=== PATIENT | female | born 1965 | race Caucasian/White ===

== ENCOUNTER 2017-09-29 16:47 | Emergency (ER) | payer OTHER ==
[~2017-09-29] VITALS: Ht 154.9 cm; Wt 60.0 kg
[2017-09-29 17:51] LABS: BASOPHILS % (AUTO) 0.3 % (0.0-2.0); EOSINOPHILS % (AUTO) 1.9 % (1.0-6.0); HEMATOCRIT 35.1 % (36-46); HEMOGLOBIN 11.5 g/dL (12.0-16.0); LYMPHOCYTES # (AUTO) 1.7 K/uL (1.0-4.8); LYMPHOCYTES % (AUTO) 24.2 % (22.0-44.0); MEAN CORPUSCULAR HEMOGLOBIN 26.4 pg (26.0-34.0); MEAN CORPUSCULAR HGB CONC 32.9 G/dL (31.0-37.0); MEAN CORPUSCULAR VOLUME 80 fL (80-100); MONOCYTES # (AUTO) 0.4 K/uL (0.1-1.0); MONOCYTES % (AUTO) 6.2 % (2.0-9.0); NEUTROPHILS # (AUTO) 4.9 K/uL (1.8-7.7); NEUTROPHILS % (AUTO) 67.4 % (40.0-70.0); PLATELET COUNT (AUTO) 266 K/uL (150-450); RED BLOOD CELL COUNT(AUTO) 4.37 MIL/uL (4.00-5.20); RED CELL DISTRIBUTION WIDTH 14.4 % (11.5-14.5); WHITE BLOOD COUNT (AUTO) 7.2 K/uL (4.5-11.0)
[2017-09-29 17:58] LABS: ANION GAP 10 mmol/L (8-16); CALCIUM, TOTAL 8.6 mg/dL (8.8-10.5); CARBON DIOXIDE 26 mmol/L (22-29); CHLORIDE 103 mmol/L (98-107); CREATININE 0.64 mg/dL (0.60-1.30); GLOMERULAR FILTR. RATE CALC > 60 mL/min (>60); POTASSIUM 3.4 mmol/L (3.5-5.1); SODIUM SERUM 139 mmol/L (136-145); UREA NITROGEN, BLOOD 13 mg/dL (7-18)
[2017-09-29 18:05] LABS: ALANINE AMINOTRANSFERASE 29 U/L (12-78); ALBUMIN 3.7 g/dL (3.4-5.0); ASPARTATE AMINOTRANSFERASE 21 U/L (15-37); BILIRUBIN,TOTAL 0.6 mg/dL (0.1-1.0)
[2017-09-29 20:30] VITALS: BP 126/68
[2017-09-29] MEDS ORDERED: LEVE500T53 PO (20:52)
[2017-09-29] MEDS ORDERED: METO25XL PO (20:52)
[2017-09-29] MEDS ORDERED: ATEN25TA PO (20:52)
[2017-09-29] MEDS ORDERED: ESOM20CA39 PO (20:52)
[2017-09-29] MEDS ORDERED: INSNOV SQ (20:52)
[2017-09-29] MEDS ORDERED: GLIP5 PO (20:52)
[2017-09-29] MEDS ORDERED: ATOR40TA28 PO (20:52)
[2017-09-29] MEDS ORDERED: METF850T2 PO (20:52)
[2017-09-29] MEDS ORDERED: LITH300T PO (20:52)
[2017-09-29] MEDS ORDERED: ALPR0.5T8 PO (20:52)
[2017-09-29] MEDS ORDERED: ISOS30TA6 PO (20:52)
[2017-09-29] MEDS ORDERED: LACT30L PO (20:52)
[2017-09-29] MEDS ORDERED: INSU100V12 SQ (20:52)
[2017-09-29] MEDS ORDERED: TRAZ150 PO (20:52)
[2017-09-29] MEDS ORDERED: ARIP15TA2 PO (20:52)
[2017-09-29] MEDS ORDERED: QUET200T PO (20:52)
[2017-09-29] MEDS ORDERED: APIX5TAB PO (20:52)
[2017-09-29] MEDS ORDERED: FURO80 PO (20:52)
== END 2017-09-29 22:35 | disposition home or self-care (01) ==
LOC: EMS 16:48
DX: T50.901A Poisoning by unspecified drugs, medicaments and biological substances, accidental (unintentional), initial encounter (principal); M79.652 Pain in left thigh; Z79.4 Long term (current) use of insulin
CPT/HCPCS: 36415; 80053; 80307; 85025; 99284; G0480